=== PATIENT | male | born 1975 | race African-American/Black ===

== ENCOUNTER 2016-11-02 14:36 | Emergency (ER) | payer MEDICAID, OTHER ==
[~2016-11-02] VITALS: Ht 167.6 cm; Wt 82.0 kg
[2016-11-02] MEDS ORDERED: HYDROCODONE/ACETAMINOPHEN 5/325MG TABLET PO ONE (20:30)
[2016-11-02 21:57] LABS: BASOPHILS % 0.4 % (0.0-2.0); EOSINOPHILS % 1.2 % (0.0-5.0); HEMATOCRIT. 43.8 % (42.0-52.0); HEMOGLOBIN. 15.1 g/dL (14.0-18.0); LYMPHOCYTES % 28.2 % (20.0-50.0); MEAN CORPUSCULAR HEMOGLOBIN 31.3 pg (28.0-32.0); MEAN PLATELET VOLUME 7.8 fl (7.4-10.4); MONOCYTES % 8.3 % (2.0-8.0); NEUTROPHILS % 61.9 % (40.0-76.0); PLATELET 186 x1000/uL (130-400); RED BLOOD CELL COUNT 4.81 mill/uL (4.7-6.1); RED CELL DISTRIBUTION WIDTH 13.9 % (11.6-14.6)
[2016-11-02 23:30] VITALS: BP 135/73
== END 2016-11-02 23:30 | disposition home or self-care (01) ==
LOC: ER 14:36
DX: S93.401A Sprain of unspecified ligament of right ankle, initial encounter (principal); M79.641 Pain in right hand; K92.0 Hematemesis; F17.200 Nicotine dependence, unspecified, uncomplicated; X50.1XXA Overexertion from prolonged static or awkward postures, initial encounter; Y93.89 Activity, other specified; Y92.89 Other specified places as the place of occurrence of the external cause; Y99.8 Other external cause status
CPT/HCPCS: 36415; 73130; 73521; 73590; 73610; 82270; 85025; 99285

== ENCOUNTER 2025-01-01 11:53 | Emergency (ER) | payer MEDICAID ==
[~2025-01-01] VITALS: Ht 175.3 cm; Wt 67.0 kg
[2025-01-01 11:56] VITALS: O2SAT 98
[2025-01-01 12:33] VITALS: TEMP 36.7
[2025-01-01 12:41] LABS: BASOPHILS % 1.0 % (0.0-2.0); EOSINOPHILS % 0.6 % (0.0-5.0); HEMATOCRIT. 46.3 % (42.0-52.0); HEMOGLOBIN. 15.3 g/dL (14.0-18.0); LYMPHOCYTES % 25.3 % (20.0-50.0); MEAN PLATELET VOLUME 7.9 fl (7.4-10.4); MONOCYTES % 5.5 % (2.0-8.0); NEUTROPHILS % 67.6 % (40.0-76.0); PLATELET 191 x1000/uL (130-400); RED BLOOD CELL COUNT 5.02 mill/uL (4.7-6.1); RED CELL DISTRIBUTION WIDTH 14.5 % (11.6-14.6)
[2025-01-01 12:58] LABS: CREATININE 1.0 mg/dL (0.6-1.3); UREA NITROGEN BLOOD 11 mg/dL (9-23)
[2025-01-01 13:00] LABS: TROPONIN I HIGH SENSITIVITY 11 ng/L (3.0-53)
[2025-01-01 13:24] LABS: INR 1.0
[2025-01-01] MEDS ORDERED: IOHEXOL-350 100 ML BOTTLE ONE (14:59)
[2025-01-01 15:24] VITALS: BP 195/122; PULSE 71; RESP 20; O2SAT 99
== END 2025-01-01 16:17 | disposition left against medical advice (07) ==
LOC: ER 11:53 → CANBEDREQ 16:31
DX: R47.01 Aphasia (principal); F17.200 Nicotine dependence, unspecified, uncomplicated; I10 Essential (primary) hypertension; I65.29 Occlusion and stenosis of unspecified carotid artery; I25.2 Old myocardial infarction; Z53.29 Procedure and treatment not carried out because of patient's decision for other reasons; Z79.899 Other long term (current) drug therapy
CPT/HCPCS: 99285; 70496; 80048; 82140; 82962; 85025; 85610; 85730; 84484; 36415; 70498; 93005; 70450; Q9967